=== PATIENT | male | born 1970 | race Caucasian/White ===

== ENCOUNTER 2017-01-31 18:05 | Emergency (ER) | payer SELFPAY ==
[~2017-01-31] VITALS: Ht 198.1 cm; Wt 90.0 kg
[~2017-01-31 18:05] MED LIST: BACT2OIN TOP; SULF1TAB47 PO; Z.0.NO CURRENT MEDS
[2017-01-31 18:21] VITALS: BP 116/78; PULSE 106; RESP 18; O2SAT 96
[2017-01-31] MEDS ORDERED: SODIUM CHLOR 0.9% 1000 ML INJ 1,000 ML IV ONE ×2 (18:23→22:15)
[2017-01-31 18:26] VITALS: BP 116/78; PULSE 102; RESP 18; O2SAT 94; O2SAT 95
[2017-01-31] MEDS ORDERED: SODIUM CHLORIDE 0.9% FLUSH 10 ML FLUSH IVF PRN (18:30)
--- NOTE | 2017-01-31 18:33 | PD ---
HPI Chief Complaint: OD/ Ingestion Time Seen by Provider: 18:23 Travel History International Travel<30 days: No Contact w/Intl Traveler<30days: No Traveled to known affect area: No History of Present Illness HPI 46-year-old male patient presents brought in by EMS, apparently friends state that he had snorted heroin and became unresponsive. He states that it was the first time he took heroin. He denies any other coingestions. He had been given Narcan is currently awake. Modifying Factors: None Associated Signs & Symptoms: Heroin overdose Risk Factors: None PFSH Past Medical History ?: Not Social History Alcohol Use: No Tobacco Use: Yes (<1 PPD) Substance Use: No Allergies-Medications (Allergen,Severity, Reaction): Coded Allergies: Shellfish (Verified Allergy, Severe, 11/29/08) Shrimp (Verified Allergy, Severe, 11/29/08) Reported Meds & Prescriptions Reported Meds & Active Scripts Active Bactroban (Mupirocin) 22 Gm Oint 2 % TOP TID 7 Days APPLY TO AFFECTED AREAS Bactrim Ds (Trimethoprim/Sulfamethoxazole) Tab 1 Tab PO BID Reported No Current Meds (Miscellaneous Medication) Misc Review of Systems Except as stated in HPI: all other systems reviewed are Neg Physical Exam Narrative GENERAL: [Well-developed middle age white male patient currently awake, alert, oriented 3. Not in acute distress. SKIN: Focused skin assessment warm/dry. HEAD: Atraumatic. Normocephalic. EYES: Pupils equal and round. No scleral icterus. No injection or drainage. ENT: No nasal bleeding or discharge. Mucous membranes pink and moist. NECK: Trachea midline. No JVD. CARDIOVASCULAR: Regular rate and rhythm. No murmur appreciated. RESPIRATORY: No accessory muscle use. Clear to auscultation. Breath sounds equal bilaterally. GASTROINTESTINAL: Abdomen soft, non-tender, nondistended. Hepatic and splenic margins not palpable. MUSCULOSKELETAL: No obvious deformities. No clubbing. No cyanosis. No edema. NEUROLOGICAL: Awake and alert. No obvious cranial nerve deficits. Motor grossly within normal limits. Normal speech. PSYCHIATRIC: Appropriate mood and affect; insight and judgment normal. Data Data Last Documented VS Vital Signs Date Time Temp Pulse Resp B/P Pulse Ox O2 Delivery O2 Flow Rate FiO2 01/31/17 18:26 102 18 116/78 95 Room Air Orders Electrocardiogram (01/31/17 18:23) Complete Blood Count With Diff (01/31/17 18:) Comprehensive Metabolic Panel (01/31/17:) Iv Access Insert/Monitor (01/31/17) Ecg Monitoring (01/31/17 18:) Oximetry (01/31/17:) Sodium Chloride 0.9% Flush (Ns Flush) (01/31/17 18:30) Sodium Chlor 0.9% 1000 Ml Inj (Ns 1000 M (01/31/17 18:23) Drug Screen, Random Urine (01/31/17 18:) Alcohol (Ethanol) (01/31/17 18:) MDM Medical Decision Making Medical Screen Exam Complete: Yes Emergency Medical Condition: Yes Medical Record Reviewed: Yes Differential Diagnosis Opiate overdose versus coingestions versus metabolic issues Narrative Course Patient is currently conversant after Narcan. Vital signs are stable in the ER. Lab workup was done and planned is for observation in the ER post-overdose. Physician Communication Physician Communication Case is signed out to Dr. Ramos at 7 PM pending workup and observation. Diagnosis Primary Impression: Heroin overdose Condition: Stable Wes Steven MD January 31, 2017 18:33
[2017-01-31 19:12] LABS: BASOPHIL % 0.2 % (0.0-2.0); EOSINOPHIL # 0.1 TH/MM3 (0-0.4); EOSINOPHIL % 1.5 % (0.0-4.0); HEMATOCRIT 44.6 % (39.0-51.0); HEMO FLAGS DIFF FINAL; LYMPH % 17.7 % (9.0-44.0); LYMPHOCYTE # 1.4 TH/MM3 (1.0-4.8); MEAN CELL VOLUME 85.8 FL (80.0-100.0); MEAN CORPUSCULAR HGB CONC 32.7 % (32.0-36.0); MONO % 5.4 % (0.0-8.0); NEUT % 75.2 % (16.0-70.0); PLATELET COUNT 301 TH/MM3 (150-450); RED CELL DISTRIBUTION WIDTH 13.4 % (11.6-17.2)
[2017-01-31 19:13] VITALS: BP 116/78; PULSE 69; RESP 20; O2SAT 99
[2017-01-31 19:26] LABS: ANION GAP 9 MEQ/L (5-15)
[2017-01-31 19:29] LABS: ALKALINE PHOSPHATASE 101 U/L (45-117); ALT (GPT) 37 U/L (12-78); AST (GOT) 28 U/L (15-37); BICARBONATE 25.2 MEQ/L (21.0-32.0); BLOOD UREA NITROGEN 15 MG/DL (7-18); CHLORIDE 105 MEQ/L (98-107); GLOMERULAR FILTRATION RATE 61 ML/MIN (>89); POTASSIUM 3.9 MEQ/L (3.5-5.1); SODIUM (NA) 139 MEQ/L (136-145); TOTAL BILIRUBIN ADULT 0.4 MG/DL (0.2-1.0)
--- NOTE | 2017-01-31 19:39 | PD ---
Physical Exam Date Seen by Provider: January 31, 2017 Time Seen by Provider: 19:36 Narrative Accepted in transfer of care from Dr. Steven GENERAL: Well-developed well-nourished male in no acute distress no respiratory distress SKIN: Warm and dry. HEAD: Normocephalic. EYES: No scleral icterus. No injection or drainage. NECK: Supple, trachea midline. No JVD or lymphadenopathy. CARDIOVASCULAR: Regular rate and rhythm without murmurs, gallops, or rubs. RESPIRATORY: Breath sounds equal bilaterally. No accessory muscle use. GASTROINTESTINAL: Abdomen soft, non-tender, nondistended. MUSCULOSKELETAL: No cyanosis, or edema. BACK: Nontender without obvious deformity. No CVA tenderness. Data Data Last Documented VS Vital Signs Date Time Temp Pulse Resp B/P Pulse Ox O2 Delivery O2 Flow Rate FiO2 01/31/17 23:49 72 18 155/72 96 Room Air Orders Electrocardiogram (01/31/17 18:23) Complete Blood Count With Diff (01/31/17 18:23) Comprehensive Metabolic Panel (01/31/17 18:23) Iv Access Insert/Monitor (01/31/17 18:23) Ecg Monitoring (01/31/17 18:23) Oximetry (01/31/17 18:23) Sodium Chloride 0.9% Flush (Ns Flush) (01/31/17 18:30) Sodium Chlor 0.9% 1000 Ml Inj (Ns 1000 M (01/31/17 18:23) Drug Screen, Random Urine (01/31/17 18:23) Alcohol (Ethanol) (01/31/17 18:23) Sodium Chlor 0.9% 1000 Ml Inj (Ns 1000 M (01/31/17 22:15) Labs Laboratory Tests Test 01/31/17 01/31/17 18:29 22:03 White Blood Count 8.0 TH/MM3 Red Blood Count 5.20 MIL/MM3 Hemoglobin 14.6 GM/DL Hematocrit 44.6 % Mean Corpuscular Volume 85.8 FL Mean Corpuscular Hemoglobin 28.0 PG Mean Corpuscular Hemoglobin 32.7 % Concent Red Cell Distribution Width 13.4 % Platelet Count 301 TH/MM3 Mean Platelet Volume 7.7 FL Neutrophils (%) (Auto) 75.2 % Lymphocytes (%) (Auto) 17.7 % Monocytes (%) (Auto) 5.4 % Eosinophils (%) (Auto) 1.5 % Basophils (%) (Auto) 0.2 % Neutrophils # (Auto) 6.0 TH/MM3 Lymphocytes # (Auto) 1.4 TH/MM3 Monocytes # (Auto) 0.4 TH/MM3 Eosinophils # (Auto) 0.1 TH/MM3 Basophils # (Auto) 0.0 TH/MM3 CBC Comment DIFF FINAL Differential Comment Sodium Level 139 MEQ/L Potassium Level 3.9 MEQ/L Chloride Level 105 MEQ/L Carbon Dioxide Level 25.2 MEQ/L Anion Gap 9 MEQ/L Blood Urea Nitrogen 15 MG/DL Creatinine 1.26 MG/DL Estimat Glomerular Filtration 61 ML/MIN Rate Random Glucose 138 MG/DL Calcium Level 8.3 MG/DL Total Bilirubin 0.4 MG/DL Aspartate Amino Transf 28 U/L (AST/SGOT) Alanine Aminotransferase 37 U/L (ALT/SGPT) Alkaline Phosphatase 101 U/L Total Protein 7.8 GM/DL Albumin 3.6 GM/DL Ethyl Alcohol Level LESS THAN 3 MG/DL Urine Opiates Screen NEG Urine Barbiturates Screen NEG Urine Amphetamines Screen POS Urine Benzodiazepines Screen POS Urine Cocaine Screen NEG Urine Cannabinoids Screen POS MDM Medical Record Reviewed: Yes Supervised Visit with LUIS: No Interpretation(s) CBC & BMP Diagram 01/31/17 18:29 Vital Signs Date Time Temp Pulse Resp B/P Pulse Ox O2 Delivery O2 Flow Rate FiO2 01/31/17 19:13 69 20 116/78 99 Room Air 01/31/17 18:26 102 18 116/78 95 Room Air 01/31/17 18:26 105 18 95 Room Air 01/31/17 18:26 94 Room Air 01/31/17 18:21 106 18 116/78 96 Differential Diagnosis Accepted in transfer of care from Dr. Steven, please refer to her dictation Narrative Course Accepted in transfer of care from Dr. Steven, for follow up of pending labs and disposition Patient resting currently voicing no concerns or complaints GCS remains 15 Is 10 PM patient waiting on urinalysis results for tox screen GCS 15 It's now 11:15 PM lab values resulted urine drug screen positive for amphetamines benzodiazepines and cannabinoids; serum alcohol less than 3; GCS remains 15; at this time patient is stable for outpatient management encouraged to follow-up with outpatient rehabilitation/detox program. Patient reports again to me that he has never used IV drugs and that he did not inject IV drugs today he inhaled a substance given to him by friends. Patient is aware of need to avoid further substance use and to seek rehabilitation/detox program as needed. Patient is desirous of being discharged to home and after greater than 5 hours of observation without any recurrent drowsiness or somnolence, altered mentation, or respiratory depression; appears stable for outpatient management at this time. It's now 12:46 AM patient is awake oriented person place time and events; GCS 15 ; pupils equal round reactive to light; Patient is stable for outpatient management and again encouraged strongly to avoid substance use and given resources or [facility] [place] to pursue outpatient or inpatient rehabilitation/detox programs. Diagnosis Primary Impression: Heroin overdose Qualified Code: T40.1X1A - Heroin overdose, accidental or unintentional, initial encounter Additional Impression: Polysubstance abuse [facility] Patient Instructions: General Instructions Additional Instruction: Discontinue substance use Recommend follow-up through [facility] facility for possible rehabilitation/detox program resources Return to the emergency department for any concerns or change in condition Increase fluid hydration with non-alcoholic beverages Med/Other Pt SpecificInfo: No Meds Exist/No RX given Disposition: 01 DISCHARGE HOME Condition: Stable Jonelle Ramos MD January 31, 2017 19:39
[2017-01-31 22:43] LABS: AMPHETAMINE, URINE POS (NEG); BARBITURATES, URINE NEG (NEG); COCAINE, URINE NEG (NEG)
[2017-01-31 23:49] VITALS: BP 155/72; PULSE 72; RESP 18; O2SAT 96
--- NOTE | 2017-02-01 15:54 | EKG ---
Date Performed: 01/31/2017 Time Performed: 18:37:34 PTAGE: 46 years EKG: Sinus rhythm BORDERLINE ECG REPOLARIZATION NO PREVIOUS TRACING DOCTOR: Avery Reynaga Interpretating Date/Time 02/01/2017 16:35:45
== END 2017-02-01 01:18 | disposition home or self-care (01) ==
LOC: NEPC 18:05
DX: T40.1X1A Poisoning by heroin, accidental (unintentional), initial encounter (principal); F19.10 Other psychoactive substance abuse, uncomplicated
CPT/HCPCS: 80053; 80307; 85025; 93005; 96360; 96361; 99284; J7030

== ENCOUNTER 2017-08-01 06:54 | Emergency (ER) | payer SELFPAY ==
[~2017-08-01] VITALS: Ht 195.6 cm; Wt 100.0 kg
[2017-08-01 06:56] VITALS: BP 126/83; PULSE 84; RESP 16; TEMP 98.2; O2SAT 98
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
== END 2017-08-01 08:35 | disposition home or self-care (01) ==
LOC: NEPD 06:54
DX: M70.21 Olecranon bursitis, right elbow (principal); V19.3XXA Pedal cyclist (driver) (passenger) injured in unspecified nontraffic accident, initial encounter; Y93.55 Activity, bike riding
CPT/HCPCS: 73080; 99283